=== PATIENT | female | born 1935 | race Two or more races ===

== ENCOUNTER 2020-02-13 23:56 | Inpatient (IN) | payer MEDICARE, BC ==
[2020-02-14] MEDS ORDERED: SODIUM CHLORIDE 0.9% 500 ML 500 ML IV ONE (00:17)
[2020-02-14] MEDS ORDERED: MORPHINE SULFATE 4 MG/ML SYRINGE IVP STA (00:17)
[2020-02-14] MEDS ORDERED: ONDANSETRON 4 MG/2 ML VIAL IVP STA (00:17)
[2020-02-14] MEDS ORDERED: DIPH,PERTUS(ACELL)TETVAC-LF 0.5 ML VIAL IM ONE (00:19)
--- NOTE | 2020-02-14 00:41 | XR ---
EXAMINATION TYPE: XR pelvis AP view DATE OF EXAM: 02/14/2020 COMPARISON: NONE HISTORY: Leg pain after a fall TECHNIQUE: Single view FINDINGS: There is comminuted intertrochanteric fracture right femur. There is displacement of the fr agments up to 2 cm. There is no dislocation. There is coxa vera deformity. Pelvic ring is intact. Sac roiliac joints are intact. IMPRESSION: Acute intertrochanteric fracture right femur.
--- NOTE | 2020-02-14 00:42 | XR ---
EXAMINATION TYPE: XR femur RT DATE OF EXAM: 02/14/2020 COMPARISON: NONE HISTORY: Pain TECHNIQUE: 4 views FINDINGS: There is comminuted intertrochanteric fracture of the right femur. There is large lesser tr ochanter chip fracture. There is no dislocation of the hip joint. The knee joint appears intact. There is moderate narrowing of the medial joint space of the knee. IMPRESSION: Acute intertrochanteric fracture right femur. 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
--- NOTE | 2020-02-14 00:43 | XR ---
EXAMINATION TYPE: XR chest 1V DATE OF EXAM: 02/14/2020 COMPARISON: NONE HISTORY: Fall. Hip fracture. TECHNIQUE: Single view FINDINGS: Thoracic aorta is atheromatous. There is no heart failure. There is some coarsening of inte rstitial markings. There are chest leads. IMPRESSION: Mild pulmonary fibrotic changes. No definite acute lung disease. Atheromatous aorta.
[2020-02-14 00:50] LABS: INR 0.9 (<1.2); Prothrombin Time 9.7 sec (9.0-12.0)
[2020-02-14 00:52] LABS: ALT 16 U/L (4-34); AST 41 U/L (14-36); African American GFR (CKD) >90 (>60 ml/min/1.73 sqM); Alkaline Phosphatase 58 U/L (38-126); Anion Gap 8 mmol/L; Blood Urea Nitrogen 13 mg/dL (7-17); Calcium 8.8 mg/dL (8.4-10.2); Carbon Dioxide 22 mmol/L (22-30); Chloride 99 mmol/L (98-107); Glucose 151 mg/dL (74-99); Non-African American GFR(CKD) 87 (>60 ml/min/1.73 sqM); Sodium 129 mmol/L (137-145); Total Bilirubin 0.6 mg/dL (0.2-1.3); Total Protein 7.1 g/dL (6.3-8.2)
[2020-02-14 00:57] LABS: Potassium 4.7 mmol/L (3.5-5.1)
--- NOTE | 2020-02-14 01:04 | CT ---
EXAMINATION TYPE: CT brain jorge valerio con DATE OF EXAM: 02/14/2020 COMPARISON: None HISTORY: Fall Today. Neck pain. CT DLP: 1267.50 mGycm Automated exposure control for dose reduction was used. There is cerebral cortical atrophy. There is no mass effect nor midline shift. There is no sign of in tracranial hemorrhage. There is some hypodensity in the white matter in both parietal lobes. The calv arium is intact. The skull base is intact. Temporal bones are intact. Cervical vertebra have normal alignment. Disc spaces are fairly normal for age. There is minimal spur ring of the endplates. Facet joints are intact. There is minimal facet arthropathy. There is no evide nce of cervical spine fracture. There is normal aeration of the temporal bones. IMPRESSION: Negative CT scan cervical spine. No fracture. 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 No acute intracranial abnormality.
[2020-02-14] MEDS ORDERED: ONDANSETRON 4 MG/2 ML VIAL IVP PRN (02:04)
[2020-02-14] MEDS ORDERED: NALOXONE 0.4 MG/ML 1 ML VIAL IV PRN (02:04)
[2020-02-14] MEDS ORDERED: HYDROcodone/APAP 5-325MG 1 EACH TAB PO PRN (02:04)
[2020-02-14] MEDS ORDERED: ACETAMINOPHEN TAB 325 MG TAB PO PRN (02:04)
--- NOTE | 2020-02-14 02:12 | ED ---
Fall HPI - General Source: EMS Mode of arrival: EMS <Sharlene Yan - Last Filed: 02/14/20 02:17> <Thomas Wilcox - Last Filed: 02/14/20 07:50> - General Chief Complaint: Fall Stated Complaint: hip injury Time Seen by Provider: 02/14/20 00:05 - History of Present Illness Initial Comments: 84-year-old female patient presents to the emergency department today for evaluation of right hip pain after a fall. Patient states just prior to arrival she was bending forward to take off her pants when she fell forward hitting the right side of her head and landing on the right hip. Patient states she is unable to get up so her daughter did call ambulance and she was transported here for further evaluation. Patient denies loss of consciousness with her head injury. She denies any current anticoagulant or antiplatelet medication use. She denies any current headache, blurred vision, double vision, nausea, or vomiting. Denies any neck pain. Patient is reporting significant pain to the right hip. Denies any numbness or tingling to the right leg. Denies any previous injury to dislocation. Patient follows with Dr. Lenz outpatient. Patient denies any recent rash, fever, chills, cough, shortness of breath, chest pain, abdominal pain, diarrhea, constipation, back pain, dizziness, weakness, hematuria, dysuria, urinary urgency, urinary frequency, or any other complaints. (Sharlene Yan) - Related Data Home Medications Medication Instructions Recorded Confirmed Ascorbic Acid [Vitamin C] 1 tab PO DAILY 06/04/16 06/17/16 Cholecalciferol [Vitamin D3] 1,000 unit PO DAILY 06/04/16 06/17/16 Latanoprost [Xalatan 0.005%] 1 drop BOTH EYES HS 06/04/16 06/17/16 Lisinopril [Zestril] 20 mg PO DAILY 06/04/16 06/17/16 Multivit-Min/Iron/Folic/Lutein 1 each PO DAILY 06/04/16 06/17/16 [Centrum Silver Women Tablet] Niacin 500 mg PO DAILY 06/04/16 06/17/16 Non Formulary Drug 1 each PO ONCE 06/04/16 06/17/16 Timolol 0.25% Ophth Soln [Timoptic 1 drop BOTH EYES QAM 06/04/16 06/17/16 0.25% Ophth Soln] Ubidecarenone [Co Q-10] 100 mg PO DAILY 06/04/16 06/17/16 Vitamin E 400 unit PO DAILY 06/04/16 06/17/16 Allergies Allergy/AdvReac Type Severity Reaction Status Date / Time No Known Allergies Allergy Verified 06/17/16 12:42 Review of Systems ROS Other: All systems not noted in ROS Statement are negative. <Sharlene Yan - Last Filed: 02/14/20 02:17> ROS Other: All systems not noted in ROS Statement are negative. <Thomas Wilcox - Last Filed: 02/14/20 07:50> ROS Statement: Those systems with pertinent positive or pertinent negative responses have been documented in the HPI. Past Medical History Past Medical History: Hyperlipidemia, Hypertension, Osteoarthritis (OA) Additional Past Medical History / Comment(s): thyroid pills at 14 years old, glucoma History of Any Multi-Drug Resistant Organisms: None Reported Past Surgical History: No Surgical Hx Reported, Tonsillectomy Past Anesthesia/Blood Transfusion Reactions: No Reported Reaction Past Psychological History: No Psychological Hx Reported Smoking Status: Never smoker Past Alcohol Use History: Occasional Past Drug Use History: None Reported - Past Family History Mother Additional Family Medical History / Comment(s): lupus <Sharlene Yan - Last Filed: 02/14/20 02:17> General Exam Limitations: no limitations General appearance: alert, in no apparent distress, other (This is a well- developed, well-nourished adult female patient in no acute distress.) Head exam: Present: other (There is small abrasion noted to the right eyebrow, mild soft tissue swelling and ecchymosis. ) Eye exam: Present: normal appearance, PERRL, EOMI. Absent: scleral icterus, conjunctival injection, periorbital swelling ENT exam: Present: normal exam, normal oropharynx, mucous membranes moist Neck exam: Present: normal inspection, other (No bony step-off or deformity noted to for midline palpation of the posterior cervical spine.). Absent: t enderness, meningismus, full ROM (Soft collar in place), lymphadenopathy Respiratory exam: Present: normal lung sounds bilaterally. Absent: respiratory distress, wheezes, rales, rhonchi, stridor Cardiovascular Exam: Present: regular rate, normal rhythm, normal heart sounds. Absent: systolic murmur, diastolic murmur, rubs, gallop, clicks GI/Abdominal exam: Present: soft, normal bowel sounds. Absent: distended, tenderness, guarding, rebound, rigid Extremities exam: Present: full ROM, tenderness (Tenderness noted over the right proximal femur and right hip), normal capillary refill, other (There is soft tissue swelling noted over the right proximal femur and right hip. Skin to the right leg is pink, warm, dry. Cap refills less than 3 seconds. Pedal and posttibial pulses are 2+ and equal bilaterally). Absent: normal inspection, pedal edema, joint swelling, calf tenderness Back exam: Present: normal inspection, other (Nontender, no step-off, no deformity to firm midline palpation of the thoracic and lumbar vertebrae. Full range of motion without pain or limitation.). Absent: vertebral tenderness Neurological exam: Present: alert, oriented X3, CN II-XII intact Psychiatric exam: Present: normal affect, normal mood Skin exam: Present: warm, dry, intact, normal color. Absent: rash <Sharlene Yan - Last Filed: 02/14/20 02:17> Course Vital Signs 02/13/20 02/14/20 02/14/20 23:58 00:01 02:04 Temperature 97.6 F Pulse Rate 79 75 Respiratory 16 16 Rate Blood Pressure 149/90 149/86 O2 Sat by Pulse 97 95 Oximetry 02/14/20 07:00 Temperature Pulse Rate 84 Respiratory 16 Rate Blood Pressure 123/76 O2 Sat by Pulse 98 Oximetry Medical Decision Making - Lab Data Result diagrams: 02/14/20 00:09 - EKG Data -: EKG Interpreted by Or - Radiology Data Radiology results: report reviewed, image reviewed <Sharlene Yan - Last Filed: 02/14/20 02:17> - Lab Data Result diagrams: 02/14/20 02:18 02/14/20 00:09 <Thomas Wilcox - Last Filed: 02/14/20 07:50> - Medical Decision Making 84 year-old female patient presents to the emergency department today for evaluation of right hip pain and had injury after experiencing a fall. Physical examination did reveal swelling and tenderness over the right proximal femur and hip. Neurovascular status is intact to the right leg. She is neurologically intact with no focal deficits. Should have small abrasion to the right eyebrow. We did update her tetanus. X-ray of the right femur and pelvis did reveal a right intertrochanteric fracture of the right femur. X-ray of the chest is unremarkable. CT brain C-spine was negative. I did obtain EKG which showed normal sinus rhythm. Did discuss the case with on-call multimedia specialist Dr. Avalos he does recommend admission and would like medicine consulted for management of her medical conditions and hyponatremia. I did start normal saline to correct sodium over the next 24 hours taking into consideration 500ml fluid bolus on arrival. (Sharlene Yan) I saw this patient in conjunction with the physician surgeon's assistant. I performed independent history and physical exam. Agree with case management. (Thomas Wilcox) - Lab Data Lab Results 02/14/20 02/14/20 02/14/20 Range/Units 00:04 00:09 00:09 PT 9.7 (9.0-12.0) sec INR 0.9 (<1.2) APTT 20.0 L (22.0-30.0) sec Sodium 129 L (137-145) mmol/L Potassium 4.7 (3.5-5.1) mmol/L Chloride 99 (98-107) mmol/L Carbon Dioxide 22 (22-30) mmol/L Anion Gap 8 mmol/L BUN 13 (7-17) mg/dL Creatinine 0.52 (0.52-1.04) mg/dL Est GFR (CKD-EPI)AfAm >90 (>60 ml/min/1.73 sqM) Est GFR (CKD-EPI)NonAf 87 (>60 ml/min/1.73 sqM) Glucose 151 H (74-99) mg/dL Calcium 8.8 (8.4-10.2) mg/dL Total Bilirubin 0.6 (0.2-1.3) mg/dL AST 41 H (14-36) U/L ALT 16 (4-34) U/L Alkaline Phosphatase 58 (38-126) U/L Total Protein 7.1 (6.3-8.2) g/dL Albumin 4.0 (3.5-5.0) g/dL Blood Type Blood Type Confirm A Positive Blood Type Recheck Bld Type Recheck Status Antibody Screen Spec Expiration Date 02/14/20 Range/Units 00:09 PT (9.0-12.0) sec INR (<1.2) APTT (22.0-30.0) sec Sodium (137-145) mmol/L Potassium (3.5-5.1) mmol/L Chloride (98-107) mmol/L Carbon Dioxide (22-30) mmol/L Anion Gap mmol/L BUN (7-17) mg/dL Creatinine (0.52-1.04) mg/dL Est GFR (CKD-EPI)AfAm (>60 ml/min/1.73 sqM) Est GFR (CKD-EPI)NonAf (>60 ml/min/1.73 sqM) Glucose (74-99) mg/dL Calcium (8.4-10.2) mg/dL Total Bilirubin (0.2-1.3) mg/dL AST (14-36) U/L ALT (4-34) U/L Alkaline Phosphatase (38-126) U/L Total Protein (6.3-8.2) g/dL Albumin (3.5-5.0) g/dL Blood Type A Positive Blood Type Confirm Blood Type Recheck No Previous Record Bld Type Recheck Status CABO Indicated Antibody Screen NEGATIVE Spec Expiration Date 02/17/2020 - 230 - EKG Data EKG Comments: EKG was obtained at 10 01 shows normal sinus rhythm with a ventricular rate of 81, GA interval 150, QRS duration 112, QT 346, QTc 41. No evidence of ST elevation or depression (Sharlene Yan) - Radiology Data CT brain C-spine without contrast was obtained. Report was reviewed in its entirety. Impression by Dr. Newman shows negative computed tomography scan cervical spine. No fracture. Stroble atrophy and parietal lobe chronic small vessel ischemia. No acute intracranial abnormality. One view x-ray of the chest is obtained. Report was reviewed in its entirety. Impression by Dr. Newman shows mild pulmonary fibrotic changes. No definite acute lung disease. Atheromatous aorta. 4 views of the right femur are obtained. Report was reviewed in its entirety. Impression by Dr. Newman shows acute intertrochanteric right femur fracture. Osteoarthritis medial joint space of the knee. AP view of the pelvis is obtained. Report was reviewed in its entirety. Impression by Dr. Newman shows acute intertrochanteric fracture of the right femur. (Sharlene Yan) Disposition Decision to Admit Reason: Admit from EC Decision Date: 02/14/20 Decision Time: 02:12 <Sharlene Yan - Last Filed: 02/14/20 02:17> <Thomas Wilcox - Last Filed: 02/14/20 07:50> Clinical Impression: Hip fracture, right, Hyponatremia, Head injury Disposition: ADMITTED IP TO THIS [facility] Condition: Serious
[2020-02-14] MEDS: MORPHINE SULFATE 4 MG/ML SYRINGE IV PRN ×3 (02:27→14:55)
[2020-02-14 02:42] LABS: Basophils % (A) 0 %; Eosinophils % (A) 0 %; HCT 39.4 % (34.0-46.0); HGB 12.8 gm/dL (11.4-16.0); Lymphocytes # (A) 0.7 k/uL (1.0-4.8); Lymphocytes % (A) 4 %; MCH 30.7 pg (25.0-35.0); MCHC 32.5 g/dL (31.0-37.0); MCV 94.5 fL (80.0-100.0); Mean Platelet Volume 8.3; Monocytes # (A) 0.7 k/uL (0-1.0); Monocytes % (A) 4 %; Neutrophils # (A) 15.1 k/uL (1.3-7.7); Neutrophils % (A) 90 %; Platelet Count 458 k/uL (150-450); RBC 4.17 m/uL (3.80-5.40); RDW 13.1 % (11.5-15.5); WBC 16.8 k/uL (3.8-10.6)
[2020-02-14 03:22] LABS: Appearance,Urine Clear (Clear); Bilirubin,Urine Negative (Negative); Blood,Urine Negative (Negative); Color,Urine Yellow; Glucose,Urine (UA) Negative (Negative); Ketones,Urine 1+ (Negative); Leukocyte Esterase,Urine Negative (Negative); Nitrite,Urine Negative (Negative); PH, Urine 6.5 (5.0-8.0); Protein,Urine Negative (Negative); Specific Gravity,Urine 1.013 (1.001-1.035); Urobilinogen,Urine <2.0 mg/dL (<2.0)
[2020-02-14] MEDS: SODIUM CHLORIDE 0.9% 1,000 ML IV SCH ×2 (08:24→18:38)
--- NOTE | 2020-02-14 10:56 | P.HPOR ---
History of Present Illness H&P Date: 02/14/20 Chief Complaint: Right intertrochanteric femur fracture Patient is an 84-year-old female who presented to [facility] early this morning after sustaining a fall. Apparently the patient was changing in her bathroom when she tripped and fell onto her right side. She was unable to weight-bear after the fall, her daughter did contact EMS and she is brought to the hospital. Upon arrival to the hospital, imaging and lab tests were done. Images demonstrated a displaced fracture involving the intertrochanteric aspect of the right femur. Dr. Avalos was contacted by the emergency room staff, patient was admitted and there are care. Consult was placed for internal medicine for clearance and management. Patient was evaluated by myself early this morning in the emergency room. Her daughter was present at bedside. She is resting comfortably at this time. She notes most discomfort of the right lower extremity. She has no other orthopedic complaints at this time. She denies any previous orthopedic surgeon involving the right hip or knee region. Currently she denies any lightheadedness, headaches, chest pain, shortness of breath, stomach upset, nausea vomiting. Review of Systems Constitutional: Reports as per HPI Past Medical History Past Medical History: Hyperlipidemia, Hypertension, Osteoarthritis (OA) Additional Past Medical History / Comment(s): thyroid pills at 14 years old, glucoma History of Any Multi-Drug Resistant Organisms: None Reported Past Surgical History: No Surgical Hx Reported, Tonsillectomy Past Anesthesia/Blood Transfusion Reactions: No Reported Reaction Past Psychological History: No Psychological Hx Reported Smoking Status: Never smoker Past Alcohol Use History: Occasional Past Drug Use History: None Reported - Past Family History Mother Additional Family Medical History / Comment(s): lupus Medications and Allergies Home Medications Medication Instructions Recorded Confirmed Type Cholecalciferol [Vitamin D3] 1,000 unit PO DAILY 06/04/16 02/14/20 History Latanoprost [Xalatan 0.005%] 1 drop BOTH EYES HS 06/04/16 02/14/20 History Multivit-Min/Iron/Folic/Lutein 1 each PO DAILY 06/04/16 02/14/20 History [Centrum Silver Women Tablet] Timolol 0.25% Ophth Soln [Timoptic 1 drop BOTH EYES BID 06/04/16 02/14/20 Histo ry 0.25% Ophth Soln] Ubidecarenone [Co Q-10] 200 mg PO DAILY 06/04/16 02/14/20 History Vitamin E 400 unit PO DAILY 06/04/16 02/14/20 History Acetaminophen Tab [Tylenol Tab] 1,000 mg PO Q8H PRN 02/14/20 02/14/20 History Ascorbic Acid [Vitamin C] 1,000 mg PO DAILY 02/14/20 02/14/20 History Brinzolamide [Azopt 1% Ophth Susp] 1 drop BOTH EYES BID 02/14/20 02/14/20 History Latanoprostene Bunod [Vyzulta] 1 drop BOTH EYES HS 02/14/20 02/14/20 History Lisinopril 40 mg PO DAILY 02/14/20 02/14/20 History Pilocarpine 2% Ophth Soln [Isopto 1 drops BOTH EYES DIRECTED 02/14/20 History Carpine 2%] Simvastatin 10 mg PO DAILY 02/14/20 02/14/20 History Visine Dry Eyes 1 - 2 drop BOTH EYES DAILY PRN 02/14/20 02/14/20 History Vitamin C/Biotin [Hair, Skin and 1 tab PO BID 02/14/20 02/14/20 History Nails] cycloSPORINE 0.05% OPHTH SOLN 1 applicator BOTH EYES Q12H 02/14/20 02/14/20 History [Restasis] Allergies Allergy/AdvReac Type Severity Reaction Status Date / Time No Known Allergies Allergy Verified 02/14/20 09:40 Physical Examination Right lower extremity: Obvious shortening and external rotation of the extremity when compared to the contralateral side No open lesions or sores present, no significant areas of erythema or soft tissue swelling She's tender with palpation over the greater trochanter and proximal femur She is unable to straight leg raise, logroll maneuver reproduces significant discomfort No pain with palpation surrounding the knee, no effusion No tenderness with palpation involving the foot and ankle Calf is soft, no tenderness with palpation Sensory exam to light touch is intact throughout the extremity, dorsalis pedis pulses 2+ Results - Labs Labs: Abnormal Lab Results - Last 24 Hours (Table) 02/14/20 02/14/20 02/14/20 Range/Units 00:09 00:09 02:18 WBC 16.8 H (3.8-10.6) k/uL Plt Count 458 H (150-450) k/uL Neutrophils # 15.1 H (1.3-7.7) k/uL Lymphocytes # 0.7 L (1.0-4.8) k/uL APTT 20.0 L (22.0-30.0) sec Sodium 129 L (137-145) mmol/L Glucose 151 H (74-99) mg/dL AST 41 H (14-36) U/L Urine Ketones (Negative) 02/14/20 Range/Units 03:13 WBC (3.8-10.6) k/uL Plt Count (150-450) k/uL Neutrophils # (1.3-7.7) k/uL Lymphocytes # (1.0-4.8) k/uL APTT (22.0-30.0) sec Sodium (137-145) mmol/L Glucose (74-99) mg/dL AST (14-36) U/L Urine Ketones 1+ H (Negative) H & H 02/14/20 Range/Units 02:18 Hgb 12.8 (11.4-16.0) gm/dL Hct 39.4 (34.0-46.0) % Coagulation 02/14/20 Range/Units 00:09 INR 0.9 (<1.2) Result Diagrams: 02/14/20 02:18 02/14/20 00:09 - Diagnostic results Hip x-ray: report reviewed, image reviewed (Images demonstrated displaced right intertrochanteric femur fracture) Assessment and Plan Assessment: Displaced and comminuted right intertrochanteric femur fracture Status post fall from standing Other medical comorbidities Plan: I was able to discuss the case, including the physical exam findings and imaging studies my attending Dr. Avalos. We plan to proceed with surgical intervention, more specifically an intramedullary nail of the right femur. Our plan is to proceed with this on 02/14/2020. Continue nothing by mouth diet at this time Risks and benefits of the procedure were discussed the patient and family at bedside, they are in good understanding and would like to proceed Obtain consent GI and DVT prophylaxis, will likely begin subcu medication after surgery Pain control, oral and IV medication as needed Medical recommendations Further recommendations to follow Time with Patient: Less than 30
[2020-02-14] MEDS: HEPARIN SODIUM,PORCINE 5,000 UNIT/ML 1 ML VIAL SQ SCH (14:45)
[2020-02-14] MEDS ORDERED: ACETAMINOPHEN TAB 500 MG TAB PO PRN (15:45)
[2020-02-14] MEDS ORDERED: ARTIFICIAL TEARS-HYPROMELLOSE DROPS 15 ML BTL BOTH EYES PRN (15:45)
--- NOTE | 2020-02-14 15:56 | P.CONS ---
History of Present Illness - Reason for Consult preoperative clearance - History of Present Illness patient is pleasant 84-year-old female had a mechanical fall. In the bathroom had an intertrochanteric fracture on the right side patient is going for surgery today patient denied any history of carotid disease in any history of congestive heart failure denied any smoking history. Patient to is fairly fun ctional.patient is bit hyponatremic Review of Systems REVIEW OF SYSTEMS: CONSTITUTIONAL: No fever, no malaise, no fatigue. HEENT: No recent visual problems or hearing problems. Denied any sore throat. CARDIOVASCULAR: No chest pain, orthopnea, PND, no palpitations, no syncope. PULMONARY: No shortness of breath, no cough, no hemoptysis. GASTROINTESTINAL: No diarrhea, no nausea, no vomiting, no abdominal pain. NEUROLOGICAL: No headaches, no weakness, no numbness. HEMATOLOGICAL: Denies any bleeding or petechiae. GENITOURINARY: Denies any burning micturition, frequency, or urgency. MUSCULOSKELETAL/RHEUMATOLOGICAL: pain in the right hip area ENDOCRINE: Denies any polyuria or polydipsia. The rest of the 14-point review of systems is negative. Past Medical History Past Medical History: Hyperlipidemia, Hypertension, Osteoarthritis (OA) Additional Past Medical History / Comment(s): thyroid pills at 14 years old, glucoma History of Any Multi-Drug Resistant Organisms: None Reported Past Surgical History: Section Past Anesthesia/Blood Transfusion Reactions: No Reported Reaction Past Psychological History: No Psychological Hx Reported Smoking Status: Never smoker Past Alcohol Use History: Occasional Past Drug Use History: None Reported - Past Family History Mother Additional Family Medical History / Comment(s): lupus Medications and Allergies Home Medications Medication Instructions Recorded Confirmed Type Cholecalciferol [Vitamin D3] 1,000 unit PO DAILY 06/04/16 02/14/20 History Latanoprost [Xalatan 0.005%] 1 drop BOTH EYES HS 06/04/16 02/14/20 History Multivit-Min/Iron/Folic/Lutein 1 each PO DAILY 06/04/16 02/14/20 History [Centrum Silver Women Tablet] Timolol 0.25% Ophth Soln [Timoptic 1 drop BOTH EYES BID 06/04/16 02/14/20 History 0.25% Ophth Soln] Ubidecarenone [Co Q-10] 200 mg PO DAILY 06/04/16 02/14/20 History Vitamin E 400 unit PO DAILY 06/04/16 02/14/20 History Acetaminophen Tab [Tylenol Tab] 1,000 mg PO Q8H PRN 02/14/20 02/14/20 History Ascorbic Acid [Vitamin C] 1,000 mg PO DAILY 02/14/20 02/14/20 History Brinzolamide [Azopt 1% Ophth Susp] 1 drop BOTH EYES BID 02/14/20 02/14/20 History Latanoprostene Bunod [Vyzulta] 1 drop BOTH EYES HS 02/14/20 02/14/20 History Lisinopril 40 mg PO DAILY 02/14/20 02/14/20 History Pilocarpine 2% Ophth Soln [Isopto 1 drops BOTH EYES DIRECTED 02/14/20 02/14/20 History Carpine 2%] Simvastatin 10 mg PO DAILY 02/14/20 02/14/20 History Visine Dry Eyes 1 - 2 drop BOTH EYES DAILY PRN 02/14/20 02/14/20 History Vitamin C/Biotin [Hair, Skin and 1 tab PO BID 02/14/20 02/14/20 History Nails] cycloSPORINE 0.05% OPHTH SOLN 1 applicator BOTH EYES Q12H 02/14/20 02/14/20 History [Restasis] Allergies Allergy/AdvReac Type Severity Reaction Status Date / Time No Known Allergies Allergy Verified 02/14/20 09:40 Physical Exam Vitals: Vital Signs Temp Pulse Pulse Resp BP BP Pulse Ox 02/14/20 13:52 98.6 F 78 19 156/73 92 L 02/14/20 13:00 98.2 F 66 16 143/76 99 02/14/20 11:15 98.3 F 76 19 143/74 97 02/14/20 07:00 84 16 123/76 98 02/14/20 02:04 75 16 149/86 95 02/14/20 00:01 79 16 149/90 97 02/13/20 23:58 97.6 F Intake and Output 02/14/20 02/14/20 02/14/20 06:59 14:59 22:59 Other: Voiding Method Indwelling Catheter Weight 56.699 kg 56.699 kg PHYSICAL EXAMINATION: GENERAL: The patient is alert and oriented x3, not in any acute distress. Well developed, well nourished. HEENT: Pupils are round and equally reacting to light. EOMI. No scleral icterus. No conjunctival pallor. Normocephalic, atraumatic. No pharyngeal erythema. No thyromegaly. CARDIOVASCULAR: S1 and S2 present. No murmurs, rubs, or gallops. PULMONARY: Chest is clear to auscultation, no wheezing or crackles. ABDOMEN: Soft, nontender, nondistended, normoactive bowel sounds. No palpable organomegaly. MUSCULOSKELETAL: deferred to orthopedic surgery EXTREMITIES: No cyanosis, clubbing, or pedal edema. NEUROLOGICAL: Gross neurological examination did not reveal any focal deficits. SKIN: No rashes. Results CBC & Chem 7: 02/14/20 02:18 02/14/20 00:09 Labs: Abnormal Lab Results - Last 24 Hours (Table) 02/14/20 02/14/20 02/14/20 Range/Units 00:09 00:09 02:18 WBC 16.8 H (3.8-10.6) k/uL Plt Count 458 H (150-450) k/uL Neutrophils # 15.1 H (1.3-7.7) k/uL Lymphocytes # 0.7 L (1.0-4.8) k/uL APTT 20.0 L (22.0-30.0) sec Sodium 129 L (137-145) mmol/L Glucose 151 H (74-99) mg/dL AST 41 H (14-36) U/L Urine Ketones (Negative) 02/14/20 Range/Units 03:13 WBC (3.8-10.6) k/uL Plt Count (150-450) k/uL Neutrophils # (1.3-7.7) k/uL Lymphocytes # (1.0-4.8) k/uL APTT (22.0-30.0) sec Sodium (137-145) mmol/L Glucose (74-99) mg/dL AST (14-36) U/L Urine Ketones 1+ H (Negative) Assessment and Plan Plan: -preoperative clearance for right intertrochanteric fracture and orthopedic intervention: Patient is low risk low operative risk for surgery and patient functionality will improve significantly with surgery. Patient is agreeable to go for the surgery. -Right intertrochanteric femoral fracture regarding pain management avoid opiate analgesia avoid anticholinergic medications benzodiazepines I'll order Tylenol and Toradol for pain along with GI prophylaxis patient is not ALLERGIC to any of these medications at this time. -hyponatremia most probably hypovolemic hyponatremia although I cannot rule out SIADH from pain patient was started on fluids will reassess the the basic sodium tomorrow again -leukocytosis secondary to fall no other evidence of infection -hyperlipidemia -Hypertension to prevent perioperative hypotension hold off on antidepressant medications at this time -Glaucoma patient resumed on her eyedrops
[2020-02-14] MEDS: KETOROLAC 30 MG/ML 1 ML VIAL IVP PRN (18:37)
[2020-02-14] MEDS: TIMOLOL 0.25% OPHTH DROPS 5 ML BTL BOTH EYES SCH (20:58)
[2020-02-14] MEDS: DORZOLAMIDE HCL 2% DROPS 10 ML BTL BOTH EYES SCH (20:58)
[2020-02-14] MEDS: FAMOTIDINE 20 MG TAB PO SCH (20:58)
[2020-02-14] MEDS: cycloSPORINE 0.05% OPHTH 0.4 ML DROPERETTE BOTH EYES SCH (20:59)
[2020-02-14] MEDS: LATANOPROST 0.005% OPHTH DROPS 2.5 ML BTL BOTH EYES SCH (20:59)
[2020-02-14] MEDS ORDERED: LATANOPROSTENE BUNOD BOTH EYES SCH (21:00)
[2020-02-15] MEDS: HEPARIN SODIUM,PORCINE 5,000 UNIT/ML 1 ML VIAL SQ SCH ×3 (04:28→21:46)
[2020-02-15] MEDS: SODIUM CHLORIDE 0.9% 1,000 ML IV SCH ×2 (04:30→16:23)
[2020-02-15] MEDS: ATORVASTATIN 10 MG TAB PO SCH (08:40)
[2020-02-15] MEDS: TIMOLOL 0.25% OPHTH DROPS 5 ML BTL BOTH EYES SCH ×2 (08:41→21:47)
[2020-02-15] MEDS: PILOCARPINE 2% OPHTH DROPS 15 ML BTL BOTH EYES SCH (08:41)
[2020-02-15] MEDS: DORZOLAMIDE HCL 2% DROPS 10 ML BTL BOTH EYES SCH ×2 (08:41→21:47)
[2020-02-15] MEDS: cycloSPORINE 0.05% OPHTH 0.4 ML DROPERETTE BOTH EYES SCH ×2 (08:41→21:47)
[2020-02-15] MEDS: FAMOTIDINE 20 MG TAB PO SCH ×2 (08:41→21:46)
[2020-02-15] MEDS ORDERED: LACTATED RINGERS 1,000 ML IV ONE ×2 (12:41→15:44)
[2020-02-15] MEDS ORDERED: MIDAZOLAM 2 MG/2 ML VIAL ONE (13:10)
[2020-02-15] MEDS ORDERED: LIDOCAINE 1% INJ 10MG/ML (20 ML MDV) ONE (13:10)
[2020-02-15] MEDS ORDERED: SUCCINYLCHOLINE CHLORIDE 100 MG/5 ML SYR IV ONE (13:10)
[2020-02-15] MEDS ORDERED: PROPOFOL 10 MG/ML 20 ML VIAL IV ONE (13:10)
[2020-02-15] MEDS ORDERED: fentaNYL (PF) 50 MCG/ML 2 ML AMP ONE (13:10)
[2020-02-15] MEDS ORDERED: HYDROmorphone 0.5 MG/0.5 ML SYRINGE IVP PRN ×2 (14:59)
[2020-02-15] MEDS ORDERED: MAGNESIUM HYDROXIDE 2,400 MG/10 ML CUP PO PRN (14:59)
[2020-02-15] MEDS ORDERED: HYDROcodone/APAP 5-325MG 1 EACH TAB PO PRN (14:59)
--- NOTE | 2020-02-15 15:10 | P.OP ---
Date of Procedure: 02/15/20 Preoperative Diagnosis: Right comminuted/displaced intertrochanteric/peritrochanteric femur fracture Postoperative Diagnosis: Same Procedure(s) Performed: Long trochanteric intramedullary nailing right intertrochanteric peritrochanteric femur fracture Implants: [place] gamma nail, 125, 11 mm x 36 cm, 100 mm compression screw Anesthesia: GETA Surgeon: Dav Avalos Buggy Ladle Tender #1: Abdulaziz Bernabe Estimated Blood Loss (ml): 100 Pathology: none sent Condition: stable Disposition: PACU Indications for Procedure: The patient's an 84-year-old female who is a community ambulator presents after falling at home injuring her right hip. Upon evaluation she was noted have a significantly displaced right intertrochanteric femur fracture. A discussion of the risks and benefits of operative intervention was made with patient and her family. They opted to proceed. Operative risks to include infection, neurovascular injury, development of blood clots, possible development of nonunion/malunion, and possible need for subsequent procedures was discussed. Informed consent was obtained. Operative Findings: As below Description of Procedure: The patient was brought to the operating room, and after induction of general anesthesia was placed supine on the Anabelle table. The fracture was reduced with longitudinal traction and internal rotation. This was verified on the AP and lateral views of fluoroscopy. I was able to obtain reasonable alignment. Bony prominences were appropriately padded. I did use fluoroscopy to evaluate her right shoulder in which a proximal humerus fracture was noted that wasn't previously evaluated. The right lower extremity was prepped and draped in normal fashion. An 8 cm incision was then made proximal to the greater trochanter. Skin and subcutaneous tissues were divided sharply. Electrocautery was used for hemostasis. The gluteus faviola fascia was split in line with the skin incision. Blunt dissection was then made down to the level of the greater trochanter. A starting awl was then placed into the medial tip of the greater trochanter with the aid of fluoroscopy. A ball-tipped guidewire was then inserted down the femoral canal. Again this is verified with fluoroscopy. Distally I reamed up to 12.5 mm per approximately I reamed to 15.5 mm down to the level of the lesser trochanter. An 11 mm x 36 cm nail was gently inserted over the guidewire. Guidewire was then removed. A threaded guidepin was then placed into the centercenter portion of the femoral head and neck on the AP and lateral views with the aid of fluoroscopy to within 5 mm the articular surface. The triple reamer was used to a depth of 95 mm. A 100 mm compression screw was inserted with the aid of fluoroscopy. The proximal locking screw was inserted. The proximal jig was then removed. The distal locking screws were placed utilizing a freehand technique. Final fluoroscopic views of hip to include AP and lateral views showed adequate reduction of this complex fracture pattern with compression. It showed adequate placement of the implant. The wounds were irrigated normal saline. The gluteus faviola fascia was closed with running 0 Vicryl suture. The deep subcutaneous tissues were reapproximated interrupted 2- 0 Vicryl sutures. The subcutaneous tissues reapproximated interrupted 2-0 Vicryl sutures. The skin was reapproximated kaveh. A sterile dressing was applied. A sling was applied to the right shoulder. The patient was awoken from general anesthesia and transferred to recovery room in fair condition. Blood loss was estimated at 100 mL. No complications were incurred. Sponge and needle counts were correct at the end of the case. Hunter LINN assisted during the major components of the case to include patient positioning, fracture reduction, implantation, and closure.
--- NOTE | 2020-02-15 15:28 | XR ---
EXAMINATION TYPE: XR shoulder limited RT DATE OF EXAM: 02/15/2020 COMPARISON: NONE HISTORY: 84-year-old female, fracture TECHNIQUE: AP view FINDINGS: Suspect a three-part proximal humeral fracture. 1 cm of lateral displacement at the surgical neck and 1.3 cm displacement of the greater tuberosity. AC joint is intact. Assessment limited due to single AP view. IMPRESSION: Limited single view. Suspect underlying 3 part proximal humeral fracture with surgical neck and great er tuberosity components.
--- NOTE | 2020-02-15 17:17 | XR ---
EXAMINATION TYPE: XR Hip Complete RT, FL guidance operating room DATE OF EXAM: 02/15/2020 COMPARISON: NONE HISTORY: 84-year-old female internal fixation right hip fracture FINDINGS: Images during placement of antegrade intramedullary nail with screw fixation. Distal interlocking scr ews have also been placed. FLUOROSCOPY Fluoroscopy time of 2 minutes 20 seconds was used during right hip fracture internal fixation. 5 yas ge/s document/s the procedure. IMPRESSION: Intraoperative fluoroscopy as above.
--- NOTE | 2020-02-15 17:25 | P.PN ---
Subjective Patient underwent the trochanteric intramedullary nailing of the right intertrochanteric peritrochanteric femoral fracture. Patient is clinically do ing well but drowsy from anesthesia Constitutional: Denied any fatigue denied any fever. Cardio vascular: denied any chest pain, palpitations Gastrointestinal denied any nausea vomiting Pulmonary: Denied any shortness of breath cough Neurologic denied any new focal deficits All inpatient medications were reviewed and appropriate changes in these medications as dictated in the interval history and assessment and plan. Objective - Vital Signs Vital signs: Vital Signs Temp 97.2 F L 02/15/20 14:59 Pulse 80 02/15/20 15:31 Resp 18 02/15/20 15:31 BP 148/70 02/15/20 15:31 Pulse Ox 93 L 02/15/20 15:31 Intake & Output 02/14/20 02/15/20 02/15/20 18:59 06:59 18:59 Intake Total 1050 Output Total 650 350 150 Balance -650 -350 900 Weight 56.699 kg Intake: IV 1050 Output: Urine 650 350 50 Estimated Blood Loss 100 Other: Voiding Method Indwelling Catheter Indwelling Catheter Indwelling Catheter - Exam PHYSICAL EXAMINATION: GENERAL: The patient is alert and oriented x3, not in any acute distress. Well developed, well nourished. HEENT: Pupils are round and equally reacting to light. EOMI. No scleral icterus. No conjunctival pallor. Normocephalic, atraumatic. No pharyngeal erythema. No thyromegaly. CARDIOVASCULAR: S1 and S2 present. No murmurs, rubs, or gallops. PULMONARY: Chest is clear to auscultation, no wheezing or crackles. ABDOMEN: Soft, nontender, nondistended, normoactive bowel sounds. No palpable organomegaly. MUSCULOSKELETAL: deferred to orthopedic surgery EXTREMITIES: No cyanosis, clubbing, or pedal edema. NEUROLOGICAL: Gross neurological examination did not reveal any focal deficits. SKIN: No rashes. - Labs CBC & Chem 7: 02/14/20 02:18 02/14/20 00:09 Assessment and Plan Plan: right intertrochanteric fracture : Patient underwent intramedullary nailing. The well after surgery. Patient is on heparin subcutaneous for DVT prophylaxis -Right intertrochanteric femoral fracture regarding pain management avoid opiate analgesia avoid anticholinergic medications benzodiazepines I'll order Tylenol and Toradol for pain along with GI prophylaxis patient is not ALLERGIC to any of these medications at this time. -hyponatremia most probably hypovolemic hyponatremia, I will repeat the basic metabolic profile again today and tomorrow -leukocytosis secondary to fall no other evidence of infection -hyperlipidemia -Hypertension to prevent perioperative hypotension hold off on antidepressant medications at this time -Glaucoma patient is on her eyedrops
[2020-02-15] MEDS: traMADol 50 MG TAB PO SCH ×2 (17:37→21:48)
[2020-02-15 18:29] LABS: African American GFR (CKD) >90 (>60 ml/min/1.73 sqM); Anion Gap 7 mmol/L; Blood Urea Nitrogen 13 mg/dL (7-17); Calcium 7.8 mg/dL (8.4-10.2); Carbon Dioxide 21 mmol/L (22-30); Chloride 104 mmol/L (98-107); Glucose 105 mg/dL (74-99); Non-African American GFR(CKD) 87 (>60 ml/min/1.73 sqM); Potassium 3.8 mmol/L (3.5-5.1); Sodium 132 mmol/L (137-145)
[2020-02-15] MEDS: SENNOSIDES-DOCUSATE SODIUM 1 EACH TAB PO SCH (21:46)
[2020-02-15] MEDS: LATANOPROST 0.005% OPHTH DROPS 2.5 ML BTL BOTH EYES SCH (21:48)
[2020-02-16] MEDS: SODIUM CHLORIDE 0.9% 1,000 ML IV SCH ×3 (01:58→22:17)
[2020-02-16] MEDS: KETOROLAC 30 MG/ML 1 ML VIAL IVP PRN (06:07)
[2020-02-16] MEDS: HEPARIN SODIUM,PORCINE 5,000 UNIT/ML 1 ML VIAL SQ SCH ×2 (07:55→22:08)
[2020-02-16] MEDS: FAMOTIDINE 20 MG TAB PO SCH ×2 (07:55→22:08)
[2020-02-16] MEDS: traMADol 50 MG TAB PO SCH ×4 (07:55→22:08)
[2020-02-16] MEDS: cycloSPORINE 0.05% OPHTH 0.4 ML DROPERETTE BOTH EYES SCH ×2 (07:55→23:08)
[2020-02-16] MEDS: ATORVASTATIN 10 MG TAB PO SCH (07:56)
[2020-02-16] MEDS: TIMOLOL 0.25% OPHTH DROPS 5 ML BTL BOTH EYES SCH ×2 (07:57→22:07)
[2020-02-16] MEDS: PILOCARPINE 2% OPHTH DROPS 15 ML BTL BOTH EYES SCH (07:57)
[2020-02-16] MEDS: DORZOLAMIDE HCL 2% DROPS 10 ML BTL BOTH EYES SCH ×2 (07:57→22:06)
[2020-02-16 09:57] LABS: Basophils % (A) 0 %; Eosinophils % (A) 0 %; HCT 24.7 % (34.0-46.0); Hypochromasia Slight; Lymphocytes % (A) 17 %; MCH 30.9 pg (25.0-35.0); MCHC 31.9 g/dL (31.0-37.0); MCV 96.8 fL (80.0-100.0); Mean Platelet Volume 7.2; Monocytes # (A) 0.4 k/uL (0-1.0); Monocytes % (A) 6 %; Neutrophils # (A) 4.4 k/uL (1.3-7.7); Neutrophils % (A) 74 %; Platelet Count 283 k/uL (150-450); RBC 2.55 m/uL (3.80-5.40); RDW 13.4 % (11.5-15.5); WBC 5.9 k/uL (3.8-10.6)
[2020-02-16 10:03] LABS: HGB 7.9 gm/dL (11.4-16.0)
--- NOTE | 2020-02-16 11:38 | P.PN ---
Subjective Progress Note Date: 02/16/20 Principal diagnosis: Status post intramedullary nail of right intertrochanteric femur fracture, 3 part displaced right proximal humerus fracture Patient is evaluated today at bedside, she is resting in her hospital chair. She has some discomfort of the right hip and right shoulder region. She denies any chest pain, shortness of breath, fever or chills at this time. Objective - Vital Signs Vital signs: Vital Signs Temp 97.5 F L 02/16/20 06:55 Pulse 83 02/16/20 06:55 Resp 16 02/16/20 06:55 BP 114/75 02/16/20 06:55 Pulse Ox 94 L 02/16/20 06:55 Intake & Output 02/15/20 02/16/20 02/16/20 18:59 06:59 18:59 Intake Total 1050 300 Output Total 450 300 300 Balance 600 0 -300 Intake: IV 1050 Oral 300 Output: Urine 350 300 300 Uretheral (Hall) 300 Estimated Blood Loss 100 Other: Voiding Method Indwelling Catheter Indwelling Catheter Bedpan Indwelling Catheter - Exam Right lower extremity: Postop bandages are good position and condition, incisions are clean, dry and intact. Minimal soft tissue swelling present in the leg. Calf is soft, no tenderness with palpation. Sensory exam to light touch is intact throughout the extremity, dorsalis pedis pulses 2+ Right upper extremity: Shoulder sling is in good position and condition. Moderate ecchymosis and soft tissue swelling present in the upper arm. Sensory exam light touch is intact. Radial pulses 2+ - Labs CBC & Chem 7: 02/16/20 09:46 02/15/20 17:59 Labs: Abnormal Lab Results - Last 24 Hours (Table) 02/14/20 02/15/20 02/16/20 Range/Units 00:09 17:59 09:46 RBC 2.55 L (3.80-5.40) m/uL Hgb 7.9 L D (11.4-16.0) gm/dL Hct 24.7 L (34.0-46.0) % Sodium 132 L (137-145) mmol/L Carbon Dioxide 21 L (22-30) mmol/L Glucose 105 H (74-99) mg/dL Calcium 7.8 L (8.4-10.2) mg/dL Crossmatch See Detail Assessment and Plan Assessment: Status post intramedullary nail right intertrochanteric femur fracture 3 part displaced right proximal humerus fracture Acute blood loss anemia, expected surgical outcome Plan: Pain control, continue oral medication is GI and DVT prophylaxis, continue subcu heparin Transfers only at this time Daily dressing changes Continue use of the arm sling Patient's hemoglobin did drop significantly after surgery, I placed an order for 1 unit of packed RBCs Continue to follow during hospital stay Time with Patient: Less than 30
[2020-02-16] MEDS: LATANOPROST 0.005% OPHTH DROPS 2.5 ML BTL BOTH EYES SCH (22:06)
[2020-02-16] MEDS: SENNOSIDES-DOCUSATE SODIUM 1 EACH TAB PO SCH (22:16)
[2020-02-17] MEDS: ATORVASTATIN 10 MG TAB PO SCH (08:00)
[2020-02-17] MEDS: traMADol 50 MG TAB PO SCH ×2 (08:00→13:21)
[2020-02-17] MEDS: HEPARIN SODIUM,PORCINE 5,000 UNIT/ML 1 ML VIAL SQ SCH (08:00)
[2020-02-17] MEDS: FAMOTIDINE 20 MG TAB PO SCH (08:00)
[2020-02-17] MEDS: cycloSPORINE 0.05% OPHTH 0.4 ML DROPERETTE BOTH EYES SCH (08:01)
[2020-02-17] MEDS: PILOCARPINE 2% OPHTH DROPS 15 ML BTL BOTH EYES SCH (08:02)
[2020-02-17] MEDS: DORZOLAMIDE HCL 2% DROPS 10 ML BTL BOTH EYES SCH (08:05)
[2020-02-17 08:13] LABS: African American GFR (CKD) >90 (>60 ml/min/1.73 sqM); Anion Gap 4 mmol/L; Basophils % (A) 0 %; Blood Urea Nitrogen 11 mg/dL (7-17); Calcium 7.5 mg/dL (8.4-10.2); Carbon Dioxide 21 mmol/L (22-30); Chloride 107 mmol/L (98-107); Eosinophils # (A) 0.1 k/uL (0-0.7); Eosinophils % (A) 1 %; Glucose 94 mg/dL (74-99); HCT 29.5 % (34.0-46.0); Lymphocytes # (A) 1.3 k/uL (1.0-4.8); Lymphocytes % (A) 21 %; MCH 31.1 pg (25.0-35.0); MCV 94.3 fL (80.0-100.0); Mean Platelet Volume 8.1; Monocytes # (A) 0.4 k/uL (0-1.0); Monocytes % (A) 6 %; Neutrophils # (A) 4.1 k/uL (1.3-7.7); Neutrophils % (A) 69 %; Non-African American GFR(CKD) >90 (>60 ml/min/1.73 sqM); Platelet Count 255 k/uL (150-450); RBC 3.12 m/uL (3.80-5.40); RDW 13.8 % (11.5-15.5); Sodium 132 mmol/L (137-145); WBC 5.9 k/uL (3.8-10.6)
[2020-02-17 08:15] LABS: HGB 9.7 gm/dL (11.4-16.0)
--- NOTE | 2020-02-17 10:39 | P.PN ---
Subjective Progress Note Date: 02/17/20 Principal diagnosis: Status post intramedullary nail of right intertrochanteric femur fracture, 3 part displaced right proximal humerus fracture Patient is evaluated today at bedside, she is resting comfortably. Her hemoglobin is much improved since the transfusion of 1 unit yesterday. She denies any chest pain, shortness of breath, fever or chills at this time. Objective - Vital Signs Vital signs: Vital Signs Temp 98.3 F 02/17/20 07:37 Pulse 82 02/17/20 07:37 Resp 16 02/17/20 07:37 BP 153/87 02/17/20 07:37 Pulse Ox 97 02/17/20 07:37 Intake & Output 02/16/20 02/17/20 02/17/20 18:59 06:59 18:59 Intake Total 0 500 Output Total 750 450 Balance -750 50 Intake: Oral 500 Blood Product 0 0 Rc As-1 Unit 0 0 [id number] Output: Urine 750 450 Uretheral (Hall) 300 Other: Voiding Method Indwelling Catheter Bedpan # Voids 2 - Exam Right lower extremity: incisions are clean, dry and intact. Minimal soft tissue swelling present in the leg. Calf is soft, no tenderness with palpation. Sensory exam to light touch is intact throughout the extremity, dorsalis pedis pulses 2+ Right upper extremity: Shoulder sling is in good position and condition. Moderate ecchymosis and soft tissue swelling present in the upper arm. Sensory exam light touch is intact. Radial pulses 2+ - Labs CBC & Chem 7: 02/17/20 07:22 02/17/20 07:22 Labs: Abnormal Lab Results - Last 24 Hours (Table) 02/14/20 02/17/20 02/17/20 Range/Units 00:09 07:22 07:22 RBC 3.12 L (3.80-5.40) m/uL Hgb 9.7 L D (11.4-16.0) gm/dL Hct 29.5 L (34.0-46.0) % Sodium 132 L (137-145) mmol/L Carbon Dioxide 21 L (22-30) mmol/L Creatinine 0.43 L (0.52-1.04) mg/dL Calcium 7.5 L (8.4-10.2) mg/dL Crossmatch See Detail Assessment and Plan Assessment: Status post intramedullary nail right intertrochanteric femur fracture 3 part displaced right proximal humerus fracture Acute blood loss anemia, expected surgical outcome Plan: Pain control, plan for discharge on oral medication GI and DVT prophylaxis, dc on heparin subq Transfers only at this time Daily dressing changes Continue use of the arm sling We'll utilize her sulfate 325 mg twice a day for 2-4 weeks for anemia Plan for discharge to rehab today Time with Patient: Less than 30
--- NOTE | 2020-02-17 10:48 | P.DS ---
Providers Date of admission: 02/14/20 01:24 Expected date of discharge: 02/17/20 Attending physician: Dav Avalos Consults: 02/14/20 02:07 Consult Physician Routine Consulting Provider: Gabriel Hogan Consult Reason/Comments: Medical management; hyponatremia Do you want consulting provider notified?: Yes [facility] Course: Date of admission: 02/14/2020 Date of discharge: 02/17/2020 Admission diagnosis: Right intertrochanteric femur fracture, 3 part displaced right proximal humerus fracture Discharge diagnosis: Status post intramedullary nail right intertrochanteric femur fracture, 3 part displaced right proximal humerus fracture Attending physician: Dr. Avalos Surgical procedures: Intramedullary nailing right intertrochanteric femur fracture Brief history: Patient is a 84-year-old female who presented to [facility] on 02/14/2020 after sustaining a fall in her bathroom. It was determined the patient had a displaced right intertrochanteric femur fracture along with a three-part displaced right proximal humerus fracture. Patient was scheduled for surgery of the right femur on 02/15/2020. Hospital course: Details of patient's surgery can be found in operative report. Patient tolerated the procedure well and was subsequently transported to orthopedic floor. Patient's orthopeidc and medical care was provided daily. Patient had daily laboratory tests performed for evaluation of overall blood counts. Patient had daily physical therapy to include strengthening range of motion as well as education with walker ambulation. Patient was treated with heparin for their postoperative DVT prophylaxis during their inpatient stay. Patient was noted to have a relatively uneventful postoperative course. Patient reported satisfactory pain control with oral pain medications by postoperative day 0. Patient showed satisfactory progress with physical therapy. Patient moved steadily through the program and had no difficulty meeting the goals by postoperative day 2. Given patient's otherwise satisfactory course and having met physical therapy goals, plan is to discharge patient rehab on postoperative day 2. Discharge condition/disposition: Patient will be discharged rehab in stable condition. Discharge medications: Instructions are given on resumption of patient's normal daily medications per primary care recommendation, in addition patient will be prescribed Tramadol 50mg, Ferrous sulfate 325mg, colace 100mg, heparin 5000 units Discharge instructions: 1. Wound care and infection precautions, keep incision dry and covered while showering, no lotions, creams, moisturizers. No soaking, tubs, pools, hottubs. Do not scrub over the incision. 2. Okay to place weight through the right lower extremity, due to the fracture in the right shoulder, recommended transfers only at this time 3. Ice and elevate when necessary. Do not exceed 20 minutes per hour with ice pack. 4. Utilize compression sleeve until seen at first follow up appointment. 5. Pain meds and anticoagulants per prescription. 6. Pain medication has potential to cause constipation. Increase oral fluid and fiber intake. Contact primary care provider if you have not had a bowel movement within 48 hours after discharge 7. No anti-inflammatory medication until discussed at first post operative visit, this including Motrin, Aleve, Mobic, Diclofenac 8. Follow up in office at 2 weeks postop with Hunter Bernabe PA-C 9. Follow up with your primary care doctor 7-10 days after discharge. 10. Contact [facility] with any questions, . Procedures: Intramedullary nail right intertrochanteric femur fracture Patient Condition at Discharge: Serious Plan - Discharge Summary Discharge Rx Participant: No New Discharge Prescriptions: New Docusate [Colace] 100 mg PO DAILY #30 capsule Ferrous Sulfate [Feosol] 325 mg PO BID #40 tab Heparin Sodium,Porcine [Heparin Sodium] 5,000 unit SQ Q12HR #60 vial traMADol HCl [Ultram] 50 mg PO Q6H PRN #28 tab PRN Reason: Pain No Action Vitamin E 400 unit PO DAILY Cholecalciferol [Vitamin D3] 1,000 unit PO DAILY Timolol 0.25% Ophth Soln [Timoptic 0.25% Ophth Soln] 1 drop BOTH EYES BID Latanoprost [Xalatan 0.005%] 1 drop BOTH EYES HS Ubidecarenone [Co Q-10] 200 mg PO DAILY Multivit-Min/Iron/Folic/Lutein [Centrum Silver Women Tablet] 1 each PO DAILY Acetaminophen Tab [Tylenol Tab] 1,000 mg PO Q8H PRN PRN Reason: Pain Vitamin C/Biotin [Hair, Skin and Nails] 1 tab PO BID Ascorbic Acid [Vitamin C] 1,000 mg PO DAILY Lisinopril 40 mg PO DAILY Brinzolamide [Azopt 1% Ophth Susp] 1 drop BOTH EYES BID Visine Dry Eyes 1 - 2 drop BOTH EYES DAILY PRN PRN Reason: DRY EYES Simvastatin 10 mg PO DAILY cycloSPORINE 0.05% OPHTH SOLN [Restasis] 1 applicator BOTH EYES Q12H Latanoprostene Bunod [Vyzulta] 1 drop BOTH EYES HS Pilocarpine 2% Ophth Soln [Isopto Carpine 2%] 1 drops BOTH EYES DIRECTED Discharge Medication List Cholecalciferol [Vitamin D3] 1,000 unit PO DAILY 06/04/16 [History] Latanoprost [Xalatan 0.005%] 1 drop BOTH EYES HS 06/04/16 [History] Multivit-Min/Iron/Folic/Lutein [Centrum Silver Women Tablet] 1 each PO DAILY 06/04/16 [History] Timolol 0.25% Ophth Soln [Timoptic 0.25% Ophth Soln] 1 drop BOTH EYES BID 06/04/16 [History] Ubidecarenone [Co Q-10] 200 mg PO DAILY 06/04/16 [History] Vitamin E 400 unit PO DAILY 06/04/16 [History] Acetaminophen Tab [Tylenol Tab] 1,000 mg PO Q8H PRN 02/14/20 [History] Ascorbic Acid [Vitamin C] 1,000 mg PO DAILY 02/14/20 [History] Brinzolamide [Azopt 1% Ophth Susp] 1 drop BOTH EYES BID 02/14/20 [History] Latanoprostene Bunod [Vyzulta] 1 drop BOTH EYES HS 02/14/20 [History] Lisinopril 40 mg PO DAILY 02/14/20 [History] Pilocarpine 2% Ophth Soln [Isopto Carpine 2%] 1 drops BOTH EYES DIRECTED 02/14/20 [History] Simvastatin 10 mg PO DAILY 02/14/20 [History] Visine Dry Eyes 1 - 2 drop BOTH EYES DAILY PRN 02/14/20 [History] Vitamin C/Biotin [Hair, Skin and Nails] 1 tab PO BID 02/14/20 [History] cycloSPORINE 0.05% OPHTH SOLN [Restasis] 1 applicator BOTH EYES Q12H 02/14/20 [History] Docusate [Colace] 100 mg PO DAILY #30 capsule 02/17/20 [Rx] Ferrous Sulfate [Feosol] 325 mg PO BID #40 tab 02/17/20 [Rx] Heparin Sodium,Porcine [Heparin Sodium] 5,000 unit SQ Q12HR #60 vial 02/17/20 [Rx] traMADol HCl [Ultram] 50 mg PO Q6H PRN #28 tab 02/17/20 [Rx] Follow up Appointment(s)/Referral(s): Deborah Lenz MD [Primary Care Provider] - 1-2 days Abdulaziz Bernabe PAC [PHYSICIAN CLAMP OPERATOR] - 2 Weeks Activity/Diet/Wound Care/Special Instructions: Orthopedic discharge instructions 1. Pain medication as needed 2. Keep incisions covered and dry while showering, okay to remove stitches 2 weeks postop, date of surgery was 02/15/2020 3. Recommend transfers from bed to chair due to fracture involving the right shoulder, patient can bear weight on the right lower extremity 4. Subcu heparin for DVT prophylaxis 5. Ferrous sulfate twice a day due to blood loss anemia 6. Plan for follow-up at [facility] 2 weeks Discharge Disposition: TRANSFER TO SNF/ECF
[2020-02-17] MEDS: TIMOLOL 0.25% OPHTH DROPS 5 ML BTL BOTH EYES SCH (13:22)
[2020-02-17 14:58] VITALS: BP 136/84; PULSE 100; RESP 18; TEMP 97.8
== END 2020-02-17 15:28 | DRG 481 ==
LOC: EC 23:56 → 4SSUR 02-14 01:24
PROVIDERS: ADMIT Orthopaedic Surgery; ATTEND Orthopaedic Surgery
PROC: 30233N1 Transfusion of Nonautologous Red Blood Cells into Peripheral Vein, Percutaneous Approach (ICD-10-PCS; 2020-02-15)
PROC: 0QS636Z Reposition Right Upper Femur with Intramedullary Internal Fixation Device, Percutaneous Approach (ICD-10-PCS; principal; 2020-02-15 13:10)
DX: S72.141A Displaced intertrochanteric fracture of right femur, initial encounter for closed fracture (principal); S42.291A Other displaced fracture of upper end of right humerus, initial encounter for closed fracture; E22.2 Syndrome of inappropriate secretion of antidiuretic hormone; D62 Acute posthemorrhagic anemia; E78.5 Hyperlipidemia, unspecified; S00.211A Abrasion of right eyelid and periocular area, initial encounter; W01.0XXA Fall on same level from slipping, tripping and stumbling without subsequent striking against object, initial encounter; I10 Essential (primary) hypertension; M19.90 Unspecified osteoarthritis, unspecified site; Z83.2 Family history of diseases of the blood and blood-forming organs and certain disorders involving the immune mechanism; Z79.899 Other long term (current) drug therapy; Y92.002 Bathroom of unspecified non-institutional (private) residence as the place of occurrence of the external cause; Z11.59 Encounter for screening for other viral diseases
CPT/HCPCS: 36415; 70450; 71045; 72125; 72170; 73502; 80048; 80053; 81003; 85025; 85610; 85730; 86850; 86900; 86901; 86920; 90471; 90715; 93005; 96361; 96374; 96375; 96376; 99285